=== PATIENT | male | born 1965 | race Caucasian/White ===

== ENCOUNTER 2024-02-22 15:20 | Emergency (ER) | payer OTHER ==
[~2024-02-22] VITALS: Ht 177.8 cm; Wt 98.2 kg
[2024-02-22] MEDS ORDERED: ESGIC 50-325-41 EACH PO (16:09)
[2024-02-22 16:22] VITALS: PULSE 76; RESP 16; TEMP 98.1; O2SAT 97
== END 2024-02-22 16:19 | disposition home or self-care (01) ==
LOC: EDBD 15:20 → FSED 15:24
DX: R51.9 Headache, unspecified (principal)
CPT/HCPCS: 70450; 80053; 81003; 85025; 99283